=== PATIENT | male | born 1995 | race Caucasian/White ===

== ENCOUNTER 2021-12-30 18:58 | Emergency (ER) | payer OTHER ==
--- NOTE | 2021-12-30 19:01 | ERPHSYRPT ---
- History of Present Illness Source: patient Exam Limitations: no limitations Physician History: This is a 26-year-old white male who has had some dental infection issues that began approximately 2 weeks ago. In the last several days, the dental infection issues have resolved but he is now complaining of sore throat with swelling and painful swallowing. He has no known exposures to anyone with viral illnesses. He does not have a headache. He does not have a cough. He has no chest pain. He is not short of breath. He has no abdominal pain. He has no nausea vomiting or diarrhea. Patient has no known drug allergies. Timing/Duration: gradual onset Severity: mild (To moderate) ENT Location: throat Prearrival Treatment: no prearrival treatment Modifying Factors: Improves With: other (Hurts to swallow) Associated Symptoms: sore throat Allergies/Adverse Reactions: No Known Drug Allergies Allergy (Unverified 12/30/21 19:25) Travel Risk - International Travel Have you traveled outside of the country in past 3 weeks: No - Coronavirus Screening Are you exhibiting any of the following symptoms?: No Close contact with a COVID-19 positive Pt in past 14-21 Days: No - Review of Systems Constitutional: No Symptoms Eyes: No Symptoms Ears, Nose, & Throat: Throat Pain Respiratory: No Symptoms Cardiac: No Symptoms Abdominal/Gastrointestinal: No Symptoms Genitourinary Symptoms: No Symptoms Musculoskeletal: No Symptoms Skin: No Symptoms Neurological: No Symptoms Psychological: No Symptoms Endocrine: No Symptoms Hematologic/Lymphatic: No Symptoms Immunological/Allergic: No Symptoms All Other Systems: Reviewed and Negative - Past Medical History Pertinent Past Medical History: Yes - Past Surgical History Past Surgical History: Yes - Nursing Vital Signs Nursing Vital Signs: Initial Vital Signs Temperature 100.1 F 12/30/21 18:59 Pulse Rate 96 H 12/30/21 18:59 Respiratory Rate 16 12/30/21 18:59 Blood Pressure 137/81 12/30/21 18:59 O2 Sat by Pulse Oximetry 100 12/30/21 18:59 Pain Scale Pain Intensity 9 - Physical Exam General Appearance: no apparent distress, alert, anxiety Eye Exam: bilateral eye: normal inspection, PERRL, EOMI Ear Exam: bilateral ear: auricle normal, canal normal, TM normal Nasal Exam: normal inspection Throat Exam: moist mucus membranes, pharynx swelling, pharynx tenderness, No uvula swelling, No voice changes Neck Exam: normal inspection, non-tender, supple, full range of motion, trachea midline Cardiovascular/Respiratory Exam: chest non-tender, no respiratory distress Abdominal Exam: non-tender Neurologic Exam: alert, oriented x 3, cooperative, 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, normal mood/affect, nml cerebellar function, nml station & gait, sensation nml Skin Exam: normal color, warm, dry SpO2 Interpretation: normal O2 Delivery: Room Air - Course Nursing assessment & vital signs reviewed: Yes Ordered Tests: Active Orders 24 hr Category Date Time Status COVID AG-BINAX NOW RAPID TEST Stat Lab 12/30/21 19:21 Completed INFLUENZA A+B RODRIGUEZ Stat Lab 12/30/21 19:21 Completed Medication Summary Discontinued Medications Generic Name Dose Route Start Last Admin Trade Name Freq PRN Reason Stop Dose Admin Hydrocodone Bitart/Acetaminophen 10 ml 12/30/21 19:36 Hydrocodone/Acetaminophen 5 Ml Udcup PO 12/30/21 19:37 STAT STA Methylprednisolone Sodium 0 mg 12/30/21 19:36 Succinate 125 mg/ Sterile IM 12/30/21 19:37 Water 2 ml STAT ONE Lab/Rad Data: Laboratory Results 12/30/21 12/30/21 Range/Units 19:21 19:21 Influenza Type A Ag NEGATIVE (NEGATIVE) Influenza Type B Ag NEGATIVE (NEGATIVE) SARS-CoV-2 Ag (Rapid) NEGATIVE (NEGATIVE) Group A Strep Antibody NOT DETECTED (NEGATIVE) - Progress Progress: improved, pain not gone completely Counseled pt/family regarding: lab results, diagnosis, need for follow-up - Departure Departure Disposition: Home Clinical Impression: Pharyngitis Condition: Stable Critical Care Time: No Referrals: EVE CASTILLO MD [Primary Care Provider] - Follow up/PCP as directed Additional Instructions: Drink plenty of cool liquids. Take medication as prescribed. Follow-up with your primary prescribing provider for further evaluation and management. Prescriptions: Hydrocodone/Acetaminophen [Hydrocodone-Acetamn 7.5-325/15] 10 ml PO Q8H PRN PRN #120 ml MDD 30 ml PRN Reason: Cough Prednisone 10 mg [Deltasone 10 mg] 10 mg PO TID #12 tablet
[2021-12-30] MEDS ORDERED: solu-MEDROL 125 MG, Sterile H2O 10 ml 2 ML IM ONE ×2 (19:36)
[2021-12-30] MEDS ORDERED: HYDROCODONE-ACETAMIN 2.5-108/5 ML SOLUTION PO STA (19:36)
[2021-12-30 19:44] LABS: COVID AG -BINAX NOW RAPID TEST NEGATIVE (NEGATIVE); INFLUENZA A NEGATIVE (NEGATIVE); INFLUENZA B NEGATIVE (NEGATIVE)
[2021-12-30 20:04] VITALS: BP 116/72; PULSE 84; O2SAT 99
[2021-12-30] MEDS ORDERED: solu-MEDROL ONE (20:05)
[2021-12-30] MEDS ORDERED: HYDROCODONE-ACETAMIN 2.5-108/5 ML SOLUTION ONE (20:05)
[2021-12-30] MEDS ORDERED: ZOFRAN ODT 4 MG PO ONE (20:17)
[2021-12-30] MEDS ORDERED: ZOFRAN ODT 4 MG ONE (20:18)
== END 2021-12-30 20:31 | disposition home or self-care (01) ==
LOC: ED 18:58
DX: J02.9 Acute pharyngitis, unspecified (principal); Z79.891 Long term (current) use of opiate analgesic; Z79.52 Long term (current) use of systemic steroids
CPT/HCPCS: 87400; 87651; 96372; 99000; 99284; J2930; Q0162; A9270-GY

== ENCOUNTER 2022-01-03 19:29 | Emergency (ER) | payer OTHER ==
[2022-01-03] MEDS ORDERED: CLINDAMYCIN-D5W 900 MG/50 ML*** 900 MG/50 ML BAG IV STA (20:04)
[2022-01-03] MEDS ORDERED: TORAdol 30 mg Injection IV ONE (20:04)
[2022-01-03] MEDS ORDERED: DECADRON 10MG INJ. IV ONE (20:05)
[2022-01-03] MEDS ORDERED: CLINDAMYCIN-D5W 900 MG/50 ML*** 900 MG/50 ML BAG IV ONE (20:26)
[2022-01-03] MEDS ORDERED: TORAdol 30 mg Injection ONE (20:26)
[2022-01-03] MEDS ORDERED: DECADRON 10MG INJ. ONE (20:26)
[2022-01-03 20:30] LABS: Absolute Neutrophil Ct (ANC) 11.62 (1.4-6.9); Basophil (Absolute #) 0 (0-0.4); Eosinophil (Absolute #) 0 (0-0.5); Hematocrit 40.3 % (42-50); Hemoglobin 13.6 gm/dl (12.5-18.0); Lymphocyte (Absolute #) 1.73 (1.0-4.6); Lymphocytes % 11.9 % (24.0-44.0); Mean Cell Volume 93.3 fl (78-100); Mean Corpuscular Hemoglobin 31.5 pg (26-32); Mean Corpuscular Hgb Concent. 33.7 g/dl (32-36); Monocyte (Absolute #) 1.15 (0.0-1.3); Monocytes % 7.9 % (0.0-12.0); Neutrophil % 80.2 % (36.0-66.0); Platelet Count 266 K/mm3 (150-450); Red Blood Count 4.32 M/mm3 (4.1-5.6); Red Cell Distribution Width 14.9 % (11.5-14.0); White Blood Count 14.5 K/mm3 (4.0-10.5)
--- NOTE | 2022-01-03 20:38 | ERPHSYRPT ---
- History of Present Illness Time Seen by Provider: 01/03/22 19:40 Source: patient Exam Limitations: no limitations Patient Subjective Stated Complaint: pt states he has had a sore throat for approx 3 weeks. states he is non his 2nd round of antibiotics now and is having increased pain and pain with swallowing. states he has swelling in his glands in his neck Triage Nursing Assessment: pt alert and oriented, answers questions approp, pt not speaking much, states too painful. c/o increased pain with swallowing. swelling and tenderness noted to neck. pt states he is unable to open his mouth wode enough to visualze anything other than his tongue. Physician History: Patient is a 26-year-old male presents to our ED with complaints of progressive sore throat and difficulty swallowing. Patient states symptoms started approximately 3 weeks ago. Patient has been treated with antibiotics and a Medrol Dosepak. Patient has been through 2 rounds of antibiotics and states that his symptoms have been progressively worsening. Patient now having difficulty swallowing and speaking. Patient unable to open his mouth due to pain. Pain is mostly at the left lateral neck and submandibular area. Pain described as an ache that is localized and constant. No radiation. Pain worse upon mastication and speaking. Patient admits to decreased p.o. due to pain. No trauma. No fever. No nausea or vomiting. Symptoms are progressive. Symptoms are moderate in intensity. Patient otherwise voices no other complaints or concerns at this time. Timing/Duration: gradual onset Severity: moderate ENT Location: throat Prearrival Treatment: no prearrival treatment Modifying Factors: Improves With: nothing Associated Symptoms: neck pain, swollen glands, sore throat, tooth pain (Patient complains of dental pain tooth #17.), difficulty swallowing, No drooling, No headache, No nasal congestion/drainage Allergies/Adverse Reactions: No Known Drug Allergies Allergy (Verified 01/03/22 19:52) Home Medications: Doxycycline Hyclate 100 mg [Vibramycin 100 MG] 100 mg PO BID 01/03/22 [History] Methylprednisolone 4 mg [Medrol 4 mg] 4 mg PO UD 01/03/22 [History] Hx Tetanus, Diphtheria Vaccination/Date Given: Yes Hx Influenza Vaccination/Date Given: No Hx Pneumococcal Vaccination/Date Given: No Immunizations Up to Date: Yes Travel Risk - International Travel Have you traveled outside of the country in past 3 weeks: No - Coronavirus Screening Are you exhibiting any of the following symptoms?: Yes Symptoms: Fever Close contact with a COVID-19 positive Pt in past 14-21 Days: No - Vaccine Status Have you recieved a Covid-19 vaccination: No - Review of Systems Constitutional: No Symptoms, No Fever, No Chills Eyes: No Symptoms Ears, Nose, & Throat: No Symptoms Respiratory: No Symptoms, No Cough, No Dyspnea Cardiac: No Symptoms, No Chest Pain, No Edema, No Syncope Abdominal/Gastrointestinal: No Symptoms, No Abdominal Pain, No Nausea, No Vom iting, No Diarrhea Genitourinary Symptoms: No Symptoms, No Dysuria Musculoskeletal: No Symptoms, No Back Pain, No Neck Pain Skin: No Symptoms, No Rash Neurological: No Symptoms, No Dizziness, No Focal Weakness, No Sensory Changes Psychological: No Symptoms Endocrine: No Symptoms Hematologic/Lymphatic: No Symptoms Immunological/Allergic: No Symptoms All Other Systems: Reviewed and Negative - Past Medical History Pertinent Past Medical History: No - Past Surgical History Past Surgical History: Yes Gastrointestinal: Hernia Repair - Social History Smoking Status: Current every day smoker How long have you smoked: 16 yrs Exposure to second hand smoke: Yes Drug Use: none Patient Lives Alone: No - Nursing Vital Signs Nursing Vital Signs: Initial Vital Signs Temperature 99.3 F 01/03/22 19:34 Pulse Rate 98 H 01/03/22 19:34 Respiratory Rate 16 01/03/22 19:34 Blood Pressure 147/84 01/03/22 19:34 O2 Sat by Pulse Oximetry 100 01/03/22 19:34 Pain Scale Pain Intensity 4 - Physical Exam General Appearance: mild distress, alert, anxiety Eye Exam: bilateral eye: normal inspection, PERRL, EOMI Ear Exam: bilateral ear: auricle normal, canal normal, TM normal Nasal Exam: normal inspection, No active bleeding, No foreign body Throat Exam: dental tenderness (Tooth #19 tenderness.), mandibular swelling (Submandibular swelling.), moist mucus membranes, trismus, No foreign body, No maxillary swelling Neck Exam: non-tender, supple, full range of motion, trachea midline, lymphadenopathy (R), lymphadenopathy (L), No stiff neck, No tender midline, No meningismus Cardiovascular/Respiratory Exam: chest non-tender, normal breath sounds, regular rate/rhythm, heart sounds normal Abdominal Exam: non-tender, soft, no organomegaly, no hernia, No guarding Neurologic Exam: alert, oriented x 3, cooperative, 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 The left submandibular fluid collection measures 4.8 x 1.2 cm the right submandibular fluid collection measures 4.3 x 2 cm. Reactive cervical lymph nodes. Trachea unremarkable. Bilateral submandibular floor of the mouth collection worrisome for Shane's) Ordered Tests: Active Orders 24 hr Category Date Time Status IV Insertion STAT Care 01/03/22 20:02 Active Pulse Oximetry (ED) STAT Care 01/03/22 20:02 Active NECK WITH CONTRAST [CT] Stat Exams 01/03/22 20:06 Taken BLOOD CULTURE Stat Lab 01/03/22 20:03 Received CBC W DIFF Stat Lab 01/03/22 20:26 Completed CMP Stat Lab 01/03/22 20:26 Completed [place] Screen Stat Lab 01/03/22 20:26 Completed Medication Summary Discontinued Medications Generic Name Dose Route Start Last Admin Trade Name Freq PRN Reason Stop Dose Admin Dexamethasone Sodium Phosphate 10 mg 01/03/22 20:05 01/03/22 20:31 Dexamethasone Sod Phosphate 10 Mg/Ml IV 01/03/22 20:06 10 mg STAT ONE Administration Dexamethasone Sodium Phosphate Confirm 01/03/22 20:26 Dexamethasone Sod Phosphate 10 Mg/Ml Administered 01/03/22 20:27 Dose 10 mg .ROUTE .STK-MED ONE Clindamycin HCl/Dextrose 900 mg in 50 mls @ 100 mls/hr 01/03/22 20:04 01/03/22 21:06 Clindamycin-D5w 900 Mg/50 Ml IV 01/03/22 20:33 Infused STAT STA Infusion Clindamycin HCl/Dextrose Confirm 01/03/22 20:26 Clindamycin-D5w 900 Mg/50 Ml Administered 01/03/22 20:27 Dose 900 mg in 50 mls @ ud IV .STK-MED ONE Clindamycin HCl/Dextrose 900 mg in 50 mls @ 100 mls/hr 01/04/22 04:07 01/04/22 05:21 Clindamycin-D5w 900 Mg/50 Ml IV 01/04/22 04:36 Infused STAT STA Infusion Clindamycin HCl/Dextrose Confirm 01/04/22 04:09 Clindamycin-D5w 900 Mg/50 Ml Administered 01/04/22 04:10 Dose 900 mg in 50 mls @ ud IV .STK-MED ONE Ketorolac Tromethamine 30 mg 01/03/22 20:04 01/03/22 20:31 Ketorolac Tromethamine 30 Mg/Ml Inj IV 01/03/22 20:05 30 mg STAT ONE Administration Ketorolac Tromethamine Confirm 01/03/22 20:26 Ketorolac Tromethamine 30 Mg/Ml Inj Administered 01/03/22 20:27 Dose 30 mg .ROUTE .STK-MED ONE Ketorolac Tromethamine 30 mg 01/04/22 04:08 01/04/22 04:31 Ketorolac Tromethamine 30 Mg/Ml Inj IV 01/04/22 04:09 30 mg STAT ONE Administration Ketorolac Tromethamine Confirm 01/04/22 04:09 Ketorolac Tromethamine 30 Mg/Ml Inj Administered 01/04/22 04:10 Dose 30 mg .ROUTE .STK-MED ONE Morphine Sulfate 2 mg 01/03/22 21:56 01/03/22 22:09 Morphine Sulfate 2 Mg/Ml Inj IV 01/03/22 21:57 2 mg STAT ONE Administration Morphine Sulfate Confirm 01/03/22 22:08 Morphine Sulfate 2 Mg/Ml Inj Administered 01/03/22 22:09 Dose 2 mg .ROUTE .STK-MED ONE Nicotine 21 mg 01/04/22 05:08 01/04/22 05:14 Nicotine 21 Mg/Patch Patch TOP 01/04/22 05:09 21 mg STAT ONE Administration Nicotine Confirm 01/04/22 05:10 Nicotine 21 Mg/Patch Patch Administered 01/04/22 05:11 Dose 21 mg .ROUTE .STK-MED ONE Lab/Rad Data: Laboratory Result Diagrams 01/03/22 20:26 01/03/22 20:26 Laboratory Results 01/03/22 01/03/22 01/03/22 Range/Units 20:26 20:26 20:26 WBC (4.0-10.5) K/mm3 RBC (4.1-5.6) M/mm3 Hgb (12.5-18.0) gm/dl Hct (42-50) % MCV (78-100) fl MCH (26-32) pg MCHC (32-36) g/dl RDW (11.5-14.0) % Plt Count (150-450) K/mm3 MPV (7.5-11.0) fl Gran % (36.0-66.0) % Eos # (Auto) (0-0.5) Absolute Lymphs (auto) (1.0-4.6) Absolute Monos (auto) (0.0-1.3) Lymphocytes % (24.0-44.0) % Monocytes % (0.0-12.0) % Eosinophils % (0.00-5.0) % Basophils % (0.0-0.4) % Absolute Granulocytes (1.4-6.9) Basophils # (0-0.4) Sodium 139 (137-145) mmol/L Potassium 3.8 (3.5-5.1) mmol/L Chloride 102 (98-107) mmol/L Carbon Dioxide 30 (22-30) mmol/L Anion Gap 11.4 (5-15) MEQ/L BUN 18 (9-20) mg/dL Creatinine 0.65 L (0.66-1.25) mg/dL Estimated GFR > 60.0 ML/MIN Glucose 97 (74-106) mg/dL Calcium 9.0 (8.4-10.2) mg/dL Total Bilirubin 0.50 (0.2-1.3) mg/dL AST 27 (17-59) U/L ALT 37 (0-50) U/L Alkaline Phosphatase 94 (38-126) U/L Serum Total Protein 8.4 H (6.3-8.2) g/dL Albumin 4.1 (3.5-5.0) g/dL Monoscreen NEGATIVE (Negative) Group A Strep Antibody NOT DETECTED (NEGATIVE) 01/03/22 Range/Units 20:26 WBC 14.5 H (4.0-10.5) K/mm3 RBC 4.32 (4.1-5.6) M/mm3 Hgb 13.6 (12.5-18.0) gm/dl Hct 40.3 L (42-50) % MCV 93.3 (78-100) fl MCH 31.5 (26-32) pg MCHC 33.7 (32-36) g/dl RDW 14.9 H (11.5-14.0) % Plt Count 266 (150-450) K/mm3 MPV 10.0 (7.5-11.0) fl Gran % 80.2 H (36.0-66.0) % Eos # (Auto) 0 (0-0.5) Absolute Lymphs (auto) 1.73 (1.0-4.6) Absolute Monos (auto) 1.15 (0.0-1.3) Lymphocytes % 11.9 L (24.0-44.0) % Monocytes % 7.9 (0.0-12.0) % Eosinophils % 0.0 (0.00-5.0) % Basophils % 0.0 (0.0-0.4) % Absolute Granulocytes 11.62 H (1.4-6.9) Basophils # 0 (0-0.4) Sodium (137-145) mmol/L Potassium (3.5-5.1) mmol/L Chloride (98-107) mmol/L Carbon Dioxide (22-30) mmol/L Anion Gap (5-15) MEQ/L BUN (9-20) mg/dL Creatinine (0.66-1.25) mg/dL Estimated GFR ML/MIN Glucose (74-106) mg/dL Calcium (8.4-10.2) mg/dL Total Bilirubin (0.2-1.3) mg/dL AST (17-59) U/L ALT (0-50) U/L Alkaline Phosphatase (38-126) U/L Serum Total Protein (6.3-8.2) g/dL Albumin (3.5-5.0) g/dL Monoscreen (Negative) Group A Strep Antibody (NEGATIVE) - Progress Progress: improved Progress Note: Patient is a 26-year-old male presents to our ED for evaluation of progressive dental infection and oral pain. Work-up reveals a lateral exam General. Patient maintaining airway well. Patient tolerating oral secretions. No respiratory distress. Vitals are normal. Case discussed with Dr. Turner who accepts transfer to [facility]. We are currently awaiting transport via ground. They anticipate transport will occur between 9 and 9:30 AM this morning. Transport paperwork completed. Case discussed with who accepts admission to observation. Portions of this note were created with voice recognition technology. There may be grammatical, spelling, punctuation or sound alike errors 01/04/22 06:55 Counseled pt/family regarding: lab results, diagnosis, rad results - Departure Departure Disposition: Home Clinical Impression: Leukocytosis, Fever, Ludwigs angina, Dental infection Condition: Stable Critical Care Time: No Referrals: EVE CASTILLO MD [Primary Care Provider] - Follow up/PCP as directed
[2022-01-03 20:44] LABS: ALBUMIN 4.1 g/dL (3.5-5.0); ALKALINE PHOSPHATASE 94 U/L (38-126); ANION GAP 11.4 MEQ/L (5-15); BLOOD UREA NITROGEN 18 mg/dL (9-20); CHLORIDE 102 mmol/L (98-107); Carbon Dioxide 30 mmol/L (22-30); Creatinine 1 0.65 mg/dL (0.66-1.25); EST GLOMERULAR FILTRATION RATE > 60.0 ML/MIN; Glucose 97 mg/dL (74-106); Potassium 3.8 mmol/L (3.5-5.1); SGOT/AST 27 U/L (17-59); SGPT/ALT 37 U/L (0-50); SODIUM 139 mmol/L (137-145); Total Protein 8.4 g/dL (6.3-8.2)
[2022-01-03] MEDS ORDERED: MORPHINE SULFATE 2 MG INJ IV ONE (21:56)
[2022-01-03] MEDS ORDERED: MORPHINE SULFATE 2 MG INJ ONE (22:08)
[2022-01-04] MEDS ORDERED: CLINDAMYCIN-D5W 900 MG/50 ML*** 900 MG/50 ML BAG IV STA (04:07)
[2022-01-04] MEDS ORDERED: TORAdol 30 mg Injection IV ONE (04:08)
[2022-01-04] MEDS ORDERED: TORAdol 30 mg Injection ONE (04:09)
[2022-01-04] MEDS ORDERED: CLINDAMYCIN-D5W 900 MG/50 ML*** 900 MG/50 ML BAG IV ONE (04:09)
[2022-01-04] MEDS ORDERED: Nicoderm CQ 21 MG TOP ONE (05:08)
[2022-01-04] MEDS ORDERED: Nicoderm CQ 21 MG ONE (05:10)
[2022-01-04] MEDS ORDERED: DECADRON 10MG INJ. IV ONE (07:15)
[2022-01-04] MEDS ORDERED: MORPHINE SULFATE 2 MG INJ IV ONE (07:15)
[2022-01-04] MEDS ORDERED: DECADRON 10MG INJ. ONE (07:22)
[2022-01-04] MEDS ORDERED: MORPHINE SULFATE 2 MG INJ ONE (07:23)
[2022-01-04 07:25] VITALS: O2SAT 98
[2022-01-04 08:20] VITALS: BP 109/60; PULSE 48
[2022-01-04] MEDS ORDERED: HYDROCODONE-ACETAMIN 2.5-108/5 ML SOLUTION PO STA (08:25)
[2022-01-04] MEDS ORDERED: HYDROCODONE-ACETAMIN 2.5-108/5 ML SOLUTION ONE (08:27)
--- NOTE | 2022-01-05 16:50 | XRAY ---
Exam: CT of the neck with IV contrast from 01/03/2022. CTDI: 14.08 mGy Comparison: None. Indication: 26-year-old male with elevated white blood cell count of 14,500, sore throat/pain and difficulty swallowing for one week with swelling on the right; consider submandibular abscess. Technique: Post-IV contrast axial images were obtained through the neck during automated injection of 80 cc of Isovue-370 contrast material. Reconstructed coronal and sagittal images were created and reviewed. Findings: The patient's teeth reveal scattered periapical lucencies consistent with numerous dental caries/infection. A lower mandibular tooth on the right appears to have been extracted. In addition, there appear to be bilateral submandibular fluid collections, larger on the left than right. This appears to involve the floor of the mouth as well. The largest fluid collection on the left measures about 3.8 cm x 1.7 cm in cross section on axial image #33. The fluid collection on the right measures about 1.5 cm x 0.6 cm on axial image #33. Other ill-defined low-attenuation regions are seen within the floor of the mouth. This is worrisome for Shane's angina, likely due to odontogenic infection. Some reactive cervical lymph nodes are noted as well. The visualized paranasal sinuses are clear. The nasopharynx appears unremarkable. There is mild asymmetric thickening of the right side of the karolina- pharyngeal wall. I also note some thickening of the right side of the epiglottis and the right aryepiglottic fold, likely secondary to inflammation. The retropharyngeal soft tissues appear unremarkable. The submandibular glands are noted. The parotid glands appear unremarkable. The thyroid gland enhances uniformly. The visualized trachea appears unremarkable. The visualized lung apices appear unremarkable. No acute osseous process is seen. Impression: 1. Multifocal bilateral submandibular/floor of mouth fluid collections are seen, more prominent on the left than right. This is worrisome for Shane's angina, likely due to odontogenic infection. Note: This report was directly communicated by telephone conversation with the emergency Department physician (Dr. Perez Pompa) by the covering radiologist physician (Regino Gore M.D.) at 11:16 PM on 01/03/2022.
== END 2022-01-04 09:15 | disposition short-term general hospital (02) ==
LOC: ED 19:29
DX: K12.2 Cellulitis and abscess of mouth (principal); K04.7 Periapical abscess without sinus; D72.829 Elevated white blood cell count, unspecified; R50.9 Fever, unspecified; R07.0 Pain in throat; R13.10 Dysphagia, unspecified; Z79.52 Long term (current) use of systemic steroids; Z72.0 Tobacco use
CPT/HCPCS: 36000; 36415; 70491; 80053; 85025; 86308; 87040; 87651; 94760; 96365; 96374; 96375; 96376; 99285; J1100; J1885; J2270; A9270-GY

== ENCOUNTER 2022-09-04 17:18 | Emergency (ER) | payer OTHER ==
--- NOTE | 2022-09-04 17:20 | ERPHSYRPT ---
- History of Present Illness Time Seen by Provider: 09/04/22 17:20 Source: patient Exam Limitations: no limitations Physician History: This is a 27-year-old white male patient of Dr. Castillo who states that he has been doing work in a call space and may have obtained an infection from a scratch in his left elbow. His primary care provider put him on amoxicillin but the symptoms initially were improving but it came to a standstill and he noticed some drainage today. There was some increased tenderness redness warmth present. Patient has difficulty extending his left elbow. Occurred: last week Method of Injury: unknown Quality: aching, throbbing Severity of Pain-Max: moderate Severity of Pain-Current: mild (To moderate) Extremities Pain Location: elbow: left Modifying Factors: Improves With: movement Associated Symptoms: fever (Low-grade) Allergies/Adverse Reactions: No Known Drug Allergies Allergy (Verified 09/04/22 17:30) Hx Tetanus, Diphtheria Vaccination/Date Given: Yes Hx Influenza Vaccination/Date Given: No Hx Pneumococcal Vaccination/Date Given: No Travel Risk - International Travel Have you traveled outside of the country in past 3 weeks: No - Coronavirus Screening Are you exhibiting any of the following symptoms?: No Close contact with a COVID-19 positive Pt in past 14-21 Days: No - Vaccine Status Have you recieved a Covid-19 vaccination: No - Review of Systems Constitutional: No Symptoms Eyes: No Symptoms Ears, Nose, & Throat: No Symptoms Respiratory: No Symptoms Cardiac: No Symptoms Abdominal/Gastrointestinal: No Symptoms Genitourinary Symptoms: No Symptoms Musculoskeletal: Joint Pain (Left elbow), Joint Swelling (Left elbow) Skin: Cellulitis (Skin overlying left elbow), Other (Skin overlying left elbow is warm to touch and red) Neurological: No Symptoms Psychological: No Symptoms Endocrine: No Symptoms Hematologic/Lymphatic: No Symptoms Immunological/Allergic: No Symptoms All Other Systems: Reviewed and Negative - Past Medical History Pertinent Past Medical History: No - Past Surgical History Past Surgical History: Yes Gastrointestinal: Hernia Repair - Social History Smoking Status: Current every day smoker How long have you smoked: 16 yrs Exposure to second hand smoke: Yes Drug Use: none Patient Lives Alone: No - Nursing Vital Signs Nursing Vital Signs: Initial Vital Signs Temperature 100.5 F 09/04/22 17:32 Pulse Rate 88 09/04/22 17:32 Respiratory Rate 18 09/04/22 17:32 Blood Pressure 147/84 09/04/22 17:32 O2 Sat by Pulse Oximetry 92 L 09/04/22 17:32 Pain Scale Pain Intensity 8 - Physical Exam General Appearance: no apparent distress, alert, anxiety, thin Eyes, Ears, Nose, Throat Exam: normal ENT inspection, moist mucous membranes Neck Exam: normal inspection, non-tender, supple, full range of motion Cardiovascular/Respiratory Exam: chest non-tender, no respiratory distress Abdominal Exam: non-tender Back Exam: normal inspection, normal range of motion, No CVA tenderness, No vertebral tenderness Shoulder Exam: normal inspection, non-tender, no evidence of injury, normal ROM Elbow/Forearm Exam: soft tissue tenderness (Left elbow), swelling (Left elbow with associated redness and warmth. Patient can but has difficulty fully extending the left elbow.) Wrist Exam: normal inspection, non-tender, no evidence of injury, normal ROM Hand Exam: normal inspection, non-tender, no evidence of injury, normal ROM Neuro/Tendon Exam: normal sensation, normal motor functions, normal tendon functions, no evidence tendon injury Mental Status Exam: alert, oriented x 3, cooperative Skin Exam: other (See above) SpO2 Interpretation: normal O2 Delivery: Room Air - Course Nursing assessment & vital signs reviewed: Yes Ordered Tests: Active Orders 24 hr Category Date Time Status UPPER EXTREMITY W/O CONTRAST [CT] Stat Exams 09/04/22 18:38 Taken CULTURE,WOUND Stat Lab 09/04/22 18:00 Ordered Medication Summary Discontinued Medications Generic Name Dose Route Start Last Admin Trade Name Thaddeus PRN Reason Stop Dose Admin Ceftriaxone Sodium 1,000 mg 09/04/22 17:52 09/04/22 18:04 Ceftriaxone Sodium 1000 Mg Inj Vial IM 09/04/22 17:53 1,000 mg STAT ONE Administration Ceftriaxone Sodium Confirm 09/04/22 18:02 Ceftriaxone Sodium 1000 Mg Inj Vial Administered 09/04/22 18:03 Dose 1,000 mg .ROUTE .STK-MED ONE Ibuprofen 600 mg 09/04/22 17:54 09/04/22 18:05 Ibuprofen 600 Mg Tablet PO 09/04/22 17:55 600 mg STAT ONE Administration Ibuprofen Confirm 09/04/22 18:02 Ibuprofen 600 Mg Tablet Administered 09/04/22 18:03 Dose 600 mg .ROUTE .STK-MED ONE Levofloxacin 500 mg 09/04/22 17:53 09/04/22 18:04 Levofloxacin 500 Mg Tablet PO 09/04/22 17:54 500 mg STAT ONE Administration Levofloxacin Confirm 09/04/22 18:02 Levofloxacin 500 Mg Tablet Administered 09/04/22 18:03 Dose 500 mg .ROUTE .STK-MED ONE Lidocaine HCl Confirm 09/04/22 18:02 Lidocaine Hcl 1% 20 Ml Mdv 20 Ml Ml Administered 09/04/22 18:03 Dose 3 ml .ROUTE .STK-MED ONE Oxycodone/Acetaminophen 1 tab 09/04/22 17:54 09/04/22 18:04 Oxycodone Hcl/Apap 5 Mg/325 Mg Tablet PO 09/04/22 17:55 1 tab STAT STA Administration Oxycodone/Acetaminophen Confirm 09/04/22 18:02 Oxycodone Hcl/Apap 5 Mg/325 Mg Tablet Administered 09/04/22 18:03 Dose 1 tab .ROUTE .STK-MED ONE - Progress Progress: improved, pain not gone completely Progress Note: 09/04/22 19:17 CT scan without contrast left elbow shows a large area posterior elbow subcutaneous soft tissue swelling/induration without focal fluid collection, emphysema or osseous destructive process. Counseled pt/family regarding: diagnosis, need for follow-up, rad results - Departure Departure Disposition: Home Clinical Impression: Cellulitis of left elbow Condition: Stable Critical Care Time: No Referrals: EVE CASTILLO MD [Primary Care Provider] - Follow up/PCP as directed Additional Instructions: Follow-up tomorrow morning at 8 AM, 09/05/2022, with [facility] or [facility]. It is a walk-in clinic and you do not need appointment. You must follow-up there tomorrow morning for further evaluation and management. Prescriptions: Oxycodone HCl/Acetaminophen [Percocet 5-325 mg Tablet] 1 each PO Q8H PRN PRN #6 tablet MDD 3 PRN Reason: Moderate To Severe Pain Ciprofloxacin [Cipro 500 MG] 500 mg PO BID #14 tablet
[2022-09-04] MEDS ORDERED: Rocephin 1000 MG INJ IM ONE (17:52)
[2022-09-04] MEDS ORDERED: Levofloxacin 500 MG Tablet PO ONE (17:53)
[2022-09-04] MEDS ORDERED: PERCOCET TABLET 5/325MG PO STA ×2 (17:54→19:22)
[2022-09-04] MEDS ORDERED: MOTRIN 600 MG PO ONE (17:54)
[2022-09-04] MEDS ORDERED: Rocephin 1000 MG INJ ONE (18:02)
[2022-09-04] MEDS ORDERED: MOTRIN 600 MG ONE (18:02)
[2022-09-04] MEDS ORDERED: PERCOCET TABLET 5/325MG ONE ×2 (18:02→19:25)
[2022-09-04] MEDS ORDERED: XYLOCAINE 1% HCL 20 ML MDV ONE (18:02)
[2022-09-04] MEDS ORDERED: Levofloxacin 500 MG Tablet ONE (18:02)
[2022-09-04 19:24] VITALS: BP 125/75; PULSE 93; O2SAT 97
--- NOTE | 2022-09-05 08:39 | XRAY ---
Indication: Posterior elbow pain and swelling. Status post drainage one week ago. Multiple contiguous images obtained through the left elbow without contrast. Sagittal and coronal reformatted images obtained. Comparison: None Posterior elbow demonstrates large area of cutaneous/subcutaneous induration presumed inflammatory/infectious. It measures at least 2.0 x 7.2 x 14 cm in greatest AP, transverse, and CC projections respectively. Lack contrast precludes further characterization. No focal fluid collection or abscess. Elbow joint intact without abnormal large effusion. No acute fracture, suspicious bony lesions, or osseous destructive process. Impression: Posterior elbow cellulitis. No focal fluid collection/abscess or osseous destructive process.
== END 2022-09-04 19:35 | disposition home or self-care (01) ==
LOC: ED 17:18
DX: L03.114 Cellulitis of left upper limb (principal); Z72.0 Tobacco use; Z79.891 Long term (current) use of opiate analgesic; Z28.310 Unvaccinated for COVID-19
CPT/HCPCS: 73200; 87070; 87077; 96372; 99284; J0696; A9270-GY